=== PATIENT | female | born 1975 | race Caucasian/White ===

== ENCOUNTER 2016-11-04 16:54 | Emergency (ER) | payer BC ==
[2016-11-04 17:27] VITALS: BP 124/90
--- NOTE | 2016-11-04 17:48 | UC ---
FLU HPI - HPI Summary HPI Summary: Pt c/o generalized malasie, cough, nasal congestion, myalgia and sore throat X 5 days. Pt has known exposure to strep throat. Did not get flu vaccine this year. - History of Current Complaint Chief Complaint: UCRespiratory Stated Complaint: SORE THROAT Time Seen by Provider: 11/04/16 17:28 Hx Obtained From: Patient Hx Last Menstrual Period: 7 days ago ?: No Onset/Duration: Sudden Onset, Lasting Days - 5 Severity Currently: Mild Severity Initially: Mild Associated Signs & Symptoms: Positive: Fever, Myalgia, Cough, Sore Throat, Nasal Congestion - Allergy/Home Medications Allergies/Adverse Reactions: Allergies Allergy/AdvReac Type Severity Reaction Status Date / Time Gentamicin Allergy Severe EYE Verified 07/18/12 20:57 [From Gentamicin Ophthalmic] REDNESS, BURNING Morphine Allergy Severe HIVES, Verified 07/18/12 20:57 VOMITING Home Medications: Home Medications Escitalopram (NF) [Lexapro (NF)] 1 tab PO DAILY 11/04/16 [History Confirmed 08/11] Ibuprofen TAB* [Advil TAB*] 3 tab PO Q6HR PRN 11/04/16 [History Confirmed ] busPIRone TAB* [Buspar TAB*] 10 mg PO BID 11/04/16 [History Confirmed 11/04/16] PMH/Surg Hx/FS Hx/Imm Hx Previously Healthy: Yes Endocrine History Of: Denies: Diabetes, Thyroid Disease Cardiovascular History Of: Denies: Cardiac Disorders, Hypertension Respiratory History Of: Denies: COPD, Asthma GI/ History Of: Denies: Ulcer - Surgical History Surgical History: Yes Surgery Procedure, Year, and Place: 3 C-SECTIONS, APPENDECTOMY - Family History Known Family History: Positive: Other - positve [facility] for Strep throat - Social History Alcohol Use: None Substance Use Type: None Smoking Status (MU): Never Smoked Tobacco Review of Systems Constitutional: Fever, Chills, Fatigue Skin: Negative Eyes: Negative ENT: Sore Throat, Other - nasal congestion Respiratory: Cough Cardiovascular: Negative Gastrointestinal: Negative Genitourinary: Negative Motor: Negative Neurovascular: Negative Musculoskeletal: Negative Neurological: Negative Psychological: Negative All Other Systems Reviewed And Are Negative: Yes Physical Exam Triage Information Reviewed: Yes Appearance: Ill-Appearing Vital Signs: Initial Vital Signs Temp 98.8 F 11/04/16 17:17 Pulse 80 11/04/16 17:17 Resp 18 11/04/16 17:17 BP 124/90 11/04/16 17:17 Pulse Ox 98 11/04/16 17:17 Eye Exam: Normal ENT Exam: Other ENT: Positive: Pharyngeal erythema, Nasal congestion, Other: - PND Neck exam: Normal Respiratory Exam: Normal Cardiovascular Exam: Normal Musculoskeletal Exam: Normal Neurological Exam: Normal Psychological Exam: Normal Skin Exam: Normal Flu Course/Dx - Course Course Of Treatment: I instructed the pt to follwo up with her PCP or return to clinic. We also discussed OTC symtom management. Pt verbalized understanding and agreed to plan of care. - Differential Dx/Diagnosis Differential Diagnosis/HQI/PQRI: Influenza, Upper Respiratory Infection Provider Diagnoses: Influenza A Discharge - Discharge Plan Condition: Stable Disposition: HOME Patient Education Materials: Influenza (ED) Additional Instructions: Please follow up with your PCP or return to clinic.
== END 2016-11-04 18:05 | disposition home or self-care (01) ==
LOC: UCEAST 16:54
DX: J10.1 Influenza due to other identified influenza virus with other respiratory manifestations (principal); R03.0 Elevated blood-pressure reading, without diagnosis of hypertension; Z88.5 Allergy status to narcotic agent
CPT/HCPCS: 87502; 99211; G0463

== ENCOUNTER 2017-03-27 18:12 | Emergency (ER) | payer BC | END 2017-03-27 19:14 | disposition left against medical advice (07) | LOC: UCEAST 18:12 | DX: N39.9 Disorder of urinary system, unspecified (principal); Z53.21 Procedure and treatment not carried out due to patient leaving prior to being seen by health care provider ==